=== PATIENT | female | born 1955 | race Caucasian/White ===

== ENCOUNTER 2017-04-24 11:48 | Day surgery (SDC) | payer OTHER ==
[~2017-04-24] VITALS: Ht 162.6 cm; Wt 71.8 kg
[~2017-04-24 11:48] MED LIST: ACET325 PO; AMLO5 PO; AMOX500 PO; ATOR40TA PO; Aspir 8181 MG PO; BLOOD PRESSURE MED; CLAR500 PO; COMBIVENT RESPIM4 GM INH; CYCL10 PO; DULO30 PO; Desyrel50 MG PO; ESTROGEN; FURO20 PO; HYDCHL25 PO; LISHYD1012 PO; LISI5 PO; LORA.5 PO; LOSA50 PO; METO50ER PO; METR250 PO; NAPR500 PO; OMEP20ER PO; ONDA8 PO; Omeprazole20 M1 PO; PARO10 PO; PARO20 PO; PARO30 PO; POTCHL10ER PO; POTCHL20ER PO; PRAV20 PO; PRED10 PO; Pravachol80 MG PO; SUCR1 PO; Senna Concentr8.6 MG PO; TETR250 PO
== END 2017-04-24 13:44 | disposition home or self-care (01) ==
LOC: ORSCSDS 11:48
PROVIDERS: Internal Medicine Gastroenterology
PROC: 0DBM8ZX Excision of Descending Colon, Via Natural or Artificial Opening Endoscopic, Diagnostic (ICD-10-PCS; principal; 2017-04-24 13:00)
PROC: 0DBK8ZX Excision of Ascending Colon, Via Natural or Artificial Opening Endoscopic, Diagnostic (ICD-10-PCS; principal; 2017-04-24 13:00)
PROC: 0DBP8ZX Excision of Rectum, Via Natural or Artificial Opening Endoscopic, Diagnostic (ICD-10-PCS; principal; 2017-04-24 13:00)
DX: Z86.010 Personal history of colon polyps (principal); K62.1 Rectal polyp; D12.4 Benign neoplasm of descending colon; D12.2 Benign neoplasm of ascending colon; I10 Essential (primary) hypertension; E78.5 Hyperlipidemia, unspecified; K21.9 Gastro-esophageal reflux disease without esophagitis; G47.33 Obstructive sleep apnea (adult) (pediatric); Z79.899 Other long term (current) drug therapy; Z79.82 Long term (current) use of aspirin; Z87.891 Personal history of nicotine dependence
CPT/HCPCS: 88305

== ENCOUNTER 2018-09-27 15:05 | Observation (INO) | payer OTHER ==
[~2018-09-27] VITALS: Ht 162.6 cm; Wt 68.5 kg
[~2018-09-27 15:05] MED LIST changes: -DULO30 PO; +DULO60 PO; -Desyrel50 MG PO; -Senna Concentr8.6 MG PO; +Senna Laxative8.6 MG PO; +TRAZ50 PO
[2018-09-27 18:15] LABS: Calcium, Ionized (POC) 1.13 mmol/L (1.10-1.46); Chloride (POC) 105 mmol/L (98-108); Creatinine (POC) 1.1 mg/dL (0.6-1.0); Glucose (ISTAT POC) 96 mg/dL (70-99); Hemoglobin (POC) 12.2 g/dL (12.0-16.0); Potassium (POC) 5.8 mmol/L (3.5-5.5); Sodium (POC) 138 mmol/L (135-148); Total CO2 (POC) 26 mmol/L (21-32)
[2018-09-28 03:24] LABS: Anion Gap 5 mmol/L (6-16); Blood Urea Nitrogen 18 mg/dL (8-24); Bun/Creatinine Ratio 18.2 (12.0-20.0); CO2, Blood 30 mmol/L (21-32); Calcium, Blood 9.1 mg/dL (8.5-10.1); Chloride, Blood 107 mmol/L (98-108); Creatinine, Blood 0.99 mg/dL (0.40-1.00); Glomerular Filtration Rate >60 (60-); Glucose, Blood 114 mg/dL (70-99); Potassium, Blood 3.4 mmol/L (3.5-5.5); Sodium, Blood 142 mmol/L (136-145)
--- NOTE | 2018-09-28 06:16 | NUR ---
SHIFT SUMMARY PT ARRIVED TO THE FLOOR WITHOUT INCIDENT. TELE PLACED, AND NO CALLS WERE RECIEVED BY THIS RN. VSS. NO COMPLAINTS OF CHEST PAIN/CHEST PRESSURE. PT SLEPT WITHOUT INCIDENT ALL NIGHT. WILL CONTINUE TO MONITOR.
[2018-09-28] MEDS ORDERED: ATOR40TA PO (10:06)
--- NOTE | 2018-09-28 10:22 | NUR ---
PT DCD HOME. ALL MEDS AND FOLLOW UP APPTS REVIEWED WITH PT WHO HAD NO QUESTIONS. PT OK TO DRIVE HERSELF HOME PER MD. ALL BELONGINGS SENT WITH PT AND PT STABLE UPON DC.
== END 2018-09-28 10:22 | disposition home or self-care (01) ==
LOC: ER 15:05 → MEDS 15:06 → ENPENDDIS 09-28 08:28 → MEDS 09-28 10:22
PROVIDERS: Physician Assistant; ADMIT Hospitalist
DX: I25.118 Atherosclerotic heart disease of native coronary artery with other forms of angina pectoris (principal); I10 Essential (primary) hypertension; E78.5 Hyperlipidemia, unspecified; E87.6 Hypokalemia; Z95.1 Presence of aortocoronary bypass graft; Z87.891 Personal history of nicotine dependence; Z88.1 Allergy status to other antibiotic agents; Z88.5 Allergy status to narcotic agent; Z79.899 Other long term (current) drug therapy
CPT/HCPCS: 36415; 71046; 71260; 80047; 80048; 80053; 83880; 84132; 84484; 85014; 85025; 93005; 93010; 96365-59; 96366-59; 99285-25; G0378; J3480; Q9967

== ENCOUNTER → 2018-12-29 | Outpatient (CLI) | payer OTHER ==
[2018-12-30 11:52] LABS: Calcium, Blood 8.9 mg/dL (8.5-10.1); Creatinine, Blood 1.08 mg/dL (0.40-1.00); Potassium, Blood 3.6 mmol/L (3.5-5.5)
== END ==
LOC: LAB SHORT 15:20 → LAB 15:20
PROVIDERS: Family Medicine
DX: E87.6 Hypokalemia (principal)
CPT/HCPCS: 80048

== ENCOUNTER → 2019-08-04 | Outpatient (CLI) | payer OTHER ==
[2019-08-04 13:47] LABS: BASOPHILS ABSOLUTE AUTO 0.06 K/mm3 (0.00-0.23); BASOPHILS PERCENT AUTO 1 % (0-2); EOSINOPHILS PERCENT AUTO 2 % (0-6); Hematocrit 41.7 % (33.0-51.0); Hemoglobin 12.9 g/dL (11.5-16.0); IMMATURE GRAN ABSOLUTE AUTO 0.02 K/mm3 (0.00-0.10); IMMATURE GRAN PERCENT AUTO 0 % (0-1); LYMPHOCYTES ABSOLUTE AUTO 2.62 K/mm3 (0.84-5.20); LYMPHOCYTES PERCENT AUTO 29 % (21-46); MONOCYTES ABSOLUTE AUTO 0.64 K/mm3 (0.16-1.47); MONOCYTES PERCENT AUTO 7 % (4-13); Mean Corpuscular HGB 30.3 pg (26.0-34.0); Mean Corpuscular HGB Conc 30.9 g/dL (31.5-36.5); Mean Corpuscular Volume 98 fL (80-100); Mean Platelet Volume 10.5 fL (9.1-12.4); NEUTROPHILS ABSOLUTE AUTO 5.51 K/mm3 (1.96-9.15); NEUTROPHILS PERCENT AUTO 61 % (41-73); Platelet Count 315 K/mm3 (150-400); RDW Coefficient Variation 12.7 % (11.7-14.2); RDW Standard Deviation 45.4 fL (35.1-46.3); Red Blood Cell Count 4.26 M/mm3 (3.80-5.20); White Blood Cell Count 9.05 K/mm3 (4.00-11.30)
[2019-08-04 14:18] LABS: Alanine Aminotransfer (ALT/SGP 34 U/L (12-78); Albumin, Blood 4.2 g/dL (3.4-5.0); Albumin/Globulin Ratio 1.2 (0.8-1.8); Alk Phos 45 U/L (50-136); Anion Gap 5 mmol/L (6-16); Aspartate Aminotrans (AST/SGOT 20 U/L (12-37); Bilirubin, Total 0.5 mg/dL (0.1-1.0); Blood Urea Nitrogen 16 mg/dL (8-24); CHOL/HDL RATIO 6.5; CO2, Blood 28 mmol/L (21-32); Calcium, Blood 9.2 mg/dL (8.5-10.1); Chloride, Blood 105 mmol/L (98-108); Cholesterol 297 mg/dL (50-200); Creatinine, Blood 0.94 mg/dL (0.40-1.00); Globulin, Blood 3.5 g/dL (2.2-4.0); Glomerular Filtration Rate >60 (60-); Glucose, Blood 109 mg/dL (70-99); HDL Cholesterol 46 mg/dL (>39); LDL/HDL RATIO 4.5; Low Density Lipoprotein Chol 207 mg/dL (0-110); Potassium, Blood 3.4 mmol/L (3.5-5.5); Sodium, Blood 138 mmol/L (136-145); Total Protein, Blood 7.7 g/dL (6.4-8.2); Triglycerides 218 mg/dL (30-160); Very Low Density Lipoprot Chol 43 mg/dL (6-32)
[2019-08-05 10:09] LABS: HBSAG SCREEN Negative (Negative); HEP A AB, IGM Negative (Negative); HEP B CORE AB, TOT Negative (Negative); HEP C VIRUS AB <0.1 (0.0-0.9)
== END ==
LOC: LAB SHORT 12:25 → LAB 12:25 → EDSTATUS 07-21 10:45 → LAB FUT 07-21 10:45
PROVIDERS: Family Medicine
DX: Z11.59 Encounter for screening for other viral diseases (principal); I10 Essential (primary) hypertension; R73.01 Impaired fasting glucose
CPT/HCPCS: 80053; 80061; 83036; 84443; 85025; 86704; 86708; 86803; 87340

== ENCOUNTER 2020-02-04 09:15 | Inpatient (IN) | payer MEDICARE, OTHER ==
[~2020-02-04] VITALS: Ht 162.6 cm; Wt 64.5 kg
[2020-02-04 10:11] LABS: BASOPHILS ABSOLUTE AUTO 0.08 K/mm3 (0.00-0.23); BASOPHILS PERCENT AUTO 1 % (0-2); EOSINOPHILS ABSOLUTE AUTO 0.27 K/mm3 (0.00-0.68); EOSINOPHILS PERCENT AUTO 3 % (0-6); Hematocrit 40.8 % (33.0-51.0); IMMATURE GRAN ABSOLUTE AUTO 0.02 K/mm3 (0.00-0.10); IMMATURE GRAN PERCENT AUTO 0 % (0-1); LYMPHOCYTES ABSOLUTE AUTO 3.09 K/mm3 (0.84-5.20); LYMPHOCYTES PERCENT AUTO 30 % (21-46); MONOCYTES ABSOLUTE AUTO 0.68 K/mm3 (0.16-1.47); MONOCYTES PERCENT AUTO 7 % (4-13); Mean Corpuscular HGB 31.4 pg (26.0-34.0); Mean Corpuscular HGB Conc 31.9 g/dL (31.5-36.5); Mean Corpuscular Volume 99 fL (80-100); Mean Platelet Volume 10.5 fL (9.1-12.4); NEUTROPHILS ABSOLUTE AUTO 6.15 K/mm3 (1.96-9.15); NEUTROPHILS PERCENT AUTO 60 % (41-73); Platelet Count 281 K/mm3 (150-400); RDW Coefficient Variation 12.1 % (11.7-14.2); RDW Standard Deviation 44.7 fL (35.1-46.3); Red Blood Cell Count 4.14 M/mm3 (3.80-5.20); White Blood Cell Count 10.29 K/mm3 (4.00-11.30)
[2020-02-04 10:28] LABS: Alanine Aminotransfer (ALT/SGP 23 U/L (12-78); Albumin, Blood 3.9 g/dL (3.4-5.0); Albumin/Globulin Ratio 1.1 (0.8-1.8); Alk Phos 59 U/L (50-136); Anion Gap 5 mmol/L (6-16); Aspartate Aminotrans (AST/SGOT 17 U/L (12-37); Bilirubin, Total 0.3 mg/dL (0.1-1.0); Blood Urea Nitrogen 17 mg/dL (8-24); Bun/Creatinine Ratio 19.7 (12.0-20.0); CO2, Blood 29 mmol/L (21-32); Calcium, Blood 9.1 mg/dL (8.5-10.1); Chloride, Blood 108 mmol/L (98-108); Creatinine, Blood 0.86 mg/dL (0.40-1.00); Globulin, Blood 3.5 g/dL (2.2-4.0); Glomerular Filtration Rate >60 (60-); Glucose, Blood 149 mg/dL (70-99); Potassium, Blood 3.5 mmol/L (3.5-5.5); Sodium, Blood 142 mmol/L (136-145); Total Protein, Blood 7.4 g/dL (6.4-8.2); Troponin I <0.015 ng/mL (0.000-0.040)
[2020-02-04] MEDS ORDERED: Bystolic2.5 MG PO (12:20)
[2020-02-04 14:48] LABS: International Normalized Ratio 0.91; Prothrombin Time Results 9.8 Sec (9.7-11.5)
--- NOTE | 2020-02-04 15:20 | NUR ---
Echocardiogram completed.
--- NOTE | 2020-02-04 16:48 | NUR ---
NEW ER ADMIT PT ARRIVE TO RM APPROX 1330. DX CHEST PAIN/PRESSURE, SOB. SHE STATE NO PAIN @ THIS TIME, NO SOB, NO N/T EXTREMITIES. STATE ER NITRO TX EFFECTIVE. STATE HX CABG 2014. CIVIL ENGINEERING SPECIALIST IN TO SEE PT, ORDER NPO AFTER MN FOR ANGIOGRAM IN AM. PLACE ORDERS FOR LOADING DOSE PLAVIX & HEP BOLUS THEN HEP GTT STARTED @ 17.7 ML/HR. ECHO COMPLETED. INITIAL CARDIAC LABS NEGATIVE. TELE MX REPORTS NSR 70'S-80'S. PT IS A/O X4, PLEASANT/COOPERATIVE, IND IN ROOM. VSS. ORIENTED TO & CALL SYSTEM.
--- NOTE | 2020-02-04 20:19 | NUR ---
ASSUMED CARE. RACIEL IS DOING BETTER. SHE HAS BEEN UP WALKING THE HALLS WITH THE IV POLE AND TOLERATING IT WELL. TELE REPORTS SINUS RUNNING IN THE 70'S. NO CHEST PAIN NOTED. SHE IS AWARE SHE WILL BE HAVING AN ANGIOGRAM IN THE MORNING. ENCOURAGE HER TO CALL IF SYMPTOMS START UP AGAIN. SHE SAID SHE WILL. DENIES ANY OTHER NEEDS AT THIS TIME. CALL LIGHT IS IN REACH.
--- NOTE | 2020-02-05 05:57 | NUR ---
SHIFT SUMMARY: AOX3, INDPENDENT. WALKED THE LOOP IN THE [place] SEVERAL TIMES LAST NIGHT. NO ANGINA PAIN OR OTHER FORMS OF CHEST PAIN OCCURRED. MILD TRACE EDEMA TO BLE. GOOD APPETITE. LUNGS CLEAR. NO CONGESTION NOTED. VS WNL, AFEBRILE. TELE REPORTS SINUS. NPO AFTER 4 AM FOR ANGIOGRAM. DID RECEIVE AM MEDICATION WITH SIP OF WATER ONLY. HEPARIN INFUSING PER ORDERS. NO OTHER CHANGES TO REPORT. CALL LIGHT IS IN REACH. PLAN: ANGIOGRAM THIS AM, FOLLOWUP WITH RESULTS. POSSIBLE DC HOME DEPENDING ON RESULTS.
[2020-02-05 10:04] LABS: SARS-Cov-2 (COVID-19) PCR, MMC Negative (NEGATIVE)
[2020-02-05 10:05] LABS: Influenza A, PCR Negative (NEGATIVE); Influenza B, PCR Negative (NEGATIVE); Resp Syncytial Virus, PCR Negative (NEGATIVE)
--- NOTE | 2020-02-05 10:55 | NUR ---
a+o, no s/sx of infection or infiltration, call light in reach, covid tested, taken by staff for procedure, will communicate with staff at post procedure destination when appropriate
--- NOTE | 2020-02-05 12:21 | NUR ---
icu called and said pt still having cp, gave report of her condition prior to general labor, nurse said she would get possessions from pcu 14
--- NOTE | 2020-02-05 13:17 | NUR ---
The pt arrived to ICU 1, c/o chest pain 6/10 described as pressure over her chest. Nitro gtt infusing at 10 mcg, 6cc/hour. Increased to 15 mcg and pt stated that her chest pressure improved to 4/10. Blood pressure remaining stable. Increased gtt to 20 mcg to resolve chest pressure. NO diaphoresis, no dyspnea. Right groin site sheath in place, distal pulses palpable, and toes are pink with brisk cap refill. Pt instructed to keep flat in bed. Given ice water to drink with bed in reverse trendelenbery position.
--- NOTE | 2020-02-05 15:36 | NUR ---
ntg gtt presently at 15 mcg/min, and pt states that her chest pressure has decreased to 1/10. Reports feeling hungry.
--- NOTE | 2020-02-05 17:52 | NUR ---
SHIFT SUMMARY PT ARRIVED TO ICU FROM [facility] THIS AFTERNOON, SHEATH IS IN PLACE, PT WAS COMPLAINING OF CHEST PAIN FOLLOWING RIGHT CORONARY STENT PLACEMENT VIA GROIN ACCESS. PT ARRIVED WITH A NITRO DRIP, BP STABLE, SINUS NICHOLAS RHYTHM SITTING IN 50s. CURRENTLY PT IS ON 20MCG/MIN OF NITRO AND HAS FLUCUATED THAT AMOUNT BETWEEN 15 AND 25MCG AT THE MOST. PT HAS ONE IV ON THE LEFT ARM WITH THE NITRO RUNNING AND HAD A POWERGLIDE PLACED TODAY FOR HER HEPARIN DRIP. THE POWERGLIDE WAS NO LONGER PATENT AND THE CATHETER WAS KINKED SO IT WAS REMOVED SEVERAL HOURS AFTER PLACEMENT. THE SHEATH GROIN SITE HAS HAD A SMALL AMOUNT OF SANGUIANOUS DRAINAGE, RN PEYTON HELD PRESSURE JUST ABOVE THE INSERTION SITE OVER THE FEMORAL ARTER FOR 10 MINUTES AROUND 1700; BLEEDING HAS SLOWED AT THIS TIME; WILL CONTINUE TO MONITOR. PT DENIES PAIN AROUND THE SITE AND DENIES ANY NUMBNESS IN THE LEG; PEDIS PULSE IS STRONG AND CAP REFILL IS LESS THAN 3 SECONDS. PT HAS BEEN ABLE TO LOG ROLL TO USE THE BED GUALLPA NEEDED AND REVERSE TRENDELEMBERG FOR EATING AND DRINKING. LUNG SOUNDS CLEAR; PT IS ON ROOM AIR. WILL CONTINUE TO TITRATE NITRO AND WORK ON GETTING A NEW SECOND LINE PLACED FOR THE HEPARIN DRIP.
--- NOTE | 2020-02-05 22:04 | NUR ---
CARE ASSUMED 1900 PT IN REVERSE [place] POSITION, LIFTING HER HEAD TO TALK TO FAMILY ON THE PHONE WHEN CARE ASSUMED. PT STATES CONSENT CP 2/10 THAT STARTED FEW MINUTES AGO, NOT RADIATING ANY WHERE. NITRO GTT INCREASED FROM 20 MCG/MIN TO 22 MCG/MIN WITH GOOD EFFECT. HEPARIN GTT 13 U/KG/HR, INFUSING IN RIGHT ARM IV. RIGHT FEMORAL GROIN SHEATH WITH TEGADERM DRESSING IN PLACE. SCANT AMOUNT OF BLOOD OOZING FROM UNDER THE DRESSING, STERILE GAUZE PLACED TO MEASURE AMOUNT OF BLOOD OOZING. PULSES STRONG IN RIGHT LOWER EXTREM, WARM TO TOUCH, AND PT DENIES NUMBNESS/TINGLING. DR. PHILLIPS CALLED TO UPDATE ON PT STATUS. ORDERS RECIVED TO CONTINUE NITRO AND HEPARIN GTT AND REMOVE SHEATH TOMORROW. PT CURRENTLY ON RA. VSS. WILL CONTINUE TO MONITOR.
--- NOTE | 2020-02-06 03:05 | NUR ---
UPDATE - SHEATH DRESSING CHANGED BRIGHT RED BLOOD CONTINUES TO OOZE FROM RIGHT FEMORAL GROIN SITE. STERILE GAUZE APPLIED TO RIGHT INGUINAL CANAL. GAUZE CHANGED EVERY HOUR SINCE SHIFT START WITH 50% SATURATION OF 4X4 STRILE GAUZE. CHG DRESSING CHANGED AND SINCE OOZING HAS DECREASED. VSS. PT DENIES CP. NITRO GTT DECREASED TO 16 MCG/MIN. LUNG SOUNDS CLEAR. PULSES STRONG AND PT DENIES NUMBNESS, DIZZINESS, N/V.
[2020-02-06 04:52] LABS: BASOPHILS ABSOLUTE AUTO 0.07 K/mm3 (0.00-0.23); BASOPHILS PERCENT AUTO 0 % (0-2); EOSINOPHILS PERCENT AUTO 1 % (0-6); Hematocrit 38.8 % (33.0-51.0); Hemoglobin 12.5 g/dL (11.5-16.0); IMMATURE GRAN ABSOLUTE AUTO 0.05 K/mm3 (0.00-0.10); IMMATURE GRAN PERCENT AUTO 0 % (0-1); LYMPHOCYTES ABSOLUTE AUTO 2.57 K/mm3 (0.84-5.20); LYMPHOCYTES PERCENT AUTO 16 % (21-46); MONOCYTES ABSOLUTE AUTO 0.91 K/mm3 (0.16-1.47); MONOCYTES PERCENT AUTO 6 % (4-13); Mean Corpuscular HGB 31.1 pg (26.0-34.0); Mean Corpuscular HGB Conc 32.2 g/dL (31.5-36.5); Mean Corpuscular Volume 97 fL (80-100); Mean Platelet Volume 10.1 fL (9.1-12.4); NEUTROPHILS ABSOLUTE AUTO 12.17 K/mm3 (1.96-9.15); NEUTROPHILS PERCENT AUTO 77 % (41-73); Platelet Count 264 K/mm3 (150-400); RDW Coefficient Variation 12.1 % (11.7-14.2); RDW Standard Deviation 43.5 fL (35.1-46.3); Red Blood Cell Count 4.02 M/mm3 (3.80-5.20); White Blood Cell Count 15.87 K/mm3 (4.00-11.30)
[2020-02-06 05:07] LABS: Anion Gap 4 mmol/L (6-16); Blood Urea Nitrogen 14 mg/dL (8-24); Bun/Creatinine Ratio 17.5 (12.0-20.0); CO2, Blood 28 mmol/L (21-32); Calcium, Blood 9.3 mg/dL (8.5-10.1); Chloride, Blood 108 mmol/L (98-108); Glomerular Filtration Rate >60 (60-); Glucose, Blood 123 mg/dL (70-99); Potassium, Blood 3.6 mmol/L (3.5-5.5); Sodium, Blood 140 mmol/L (136-145)
--- NOTE | 2020-02-06 07:23 | NUR ---
SHIFT SUMMARY PT A/O X 4. PT DENIES CP. NITRO GTT 5 MCG/MIN. HEPARIN GTT 13 U/KG/HR. RIGHT FEMORAL GROIN WITH SHEATH IN PLACE. SHEATH CONTINUES TO BE OOZING SCANT AMOUNT OF BLOOD, 4x4 GAUZE CONTINUE TO BE SATURATED 50% DURING EVERY 1 HOUR ASSESSMENT. WILL REPORT TO ONCOMING SHIFT. RIGHT FEMORAL PULSE STRONG, WARM, WITH < 3 SEC CAP REFILL. PT DENIES NUMBNESS. PT REMAINS IN NSR, VSS. WILL REPORT TO ONCOMING SHIFT.
--- NOTE | 2020-02-06 10:34 | NUR ---
CARE ASSUMED REPORT RECEIVED, CARE ASSUMED AT 0700 FROM SHAWN VALDEZ AT 0700. UPON ASSUMING CARE, PT AWAKE IN BED, TALKING WITH STAFF. VISUALIZED SHEATH DRESSING WITH SHAWN VALDEZ AND DRESSING SITE UNCHANGED SINCE ASSUMING CARE. NO FUTHER OOZING NOTED. HEPARIN STOPPED AT 0850 PER WATER TANKER DRIVER ORDERS. NITRO GTT CONTINUES TO INFUSE AT LOW DOSE PT HYPERTENSIVE. AM BP MEDS GIVEN, WILL CONTINUE TO CLOSELY MONITOR. PT DENIES CHEST PAIN, PRESSURE, SOB OR DIZZINESS CONSISTENTLY. AWARE AND COMPLIANT WITH LIMITATIONS ASSOCIATED WITH SHEATH. PT ABLE TO USE BEDPAN AND TURN SELF USING LEFT LEG ONLY AND KEEPING RIGHT LEG COMPLETELY STRAIGHT. CALLING APPROPRIATELY FOR NEEDS. PT'S BREAKFAST TRAY HELD THIS MORNING UNTIL CONFIRMATION OF NO REPEAT DIRECTOR OF RECREATION THERAPY PROCEDURE TODAY. WAITING FOR CARDIOLOGY REEVALUATION THIS MORNING.
--- NOTE | 2020-02-06 11:31 | NUR ---
PROVIDER COMMUNICATION SPOKE WITH DR. PHILLIPS FOR UPDATE ON PATIENT. NEW ORDER FOR REPEAT PTT Q2H UNTIL PTT IS LESS THAN 40. TURN OF NITRO. IF PTT LESS THAN 40 AND PT WITHOUT CHEST PAIN OFF OF NITRO, REMOVE SHEATH. OK TO FEED PATIENT. PT ALSO EXPRESSING CONCERN ABOUT FEELING ANXIOUS/RESTLESS. NEW ORDER FOR XANAX FROM DR. PHILLIPS. PER DR. PHILLIPS, SHE WILL SEE PATIENT THIS AFTERNOON.
--- NOTE | 2020-02-06 12:33 | NUR ---
PROVIDER COMMUNICATION CALL PLACED TO DR. PHILLIPS TO UPDATE ON PTT RESULTS. PT HAS ALSO HAD NO CHEST PAIN SINCE TURNING NITRO OFF 1 HOUR AGO. WILL WAIT FOR TAILINGS DAM LABORER CONFIRMATION PRIOR TO REMOVAL OF SHEATH.
--- NOTE | 2020-02-06 17:26 | NUR ---
SUMMARY SINCE PREVIOUS NOTES, PT'S SHEATH REMOVED WITHOUT COMPLICATIONS. AT THIS TIME PT SITTING UP IN BED EATING BREAKFAST. NO SIGN OF BLEEDING NOTED. NO HEMATOMAS, SWELLING OR FIRMNESS. VITALS STABLE. DISTAL TOES CONTINUE TO BE PINK, PULSES STRONG. DR. PHILLIPS TO BEDSIDE FOR ASSESSMENT THIS EVENING AND PT CHANGED TO PCU STATUS. PT HAS NOT HAD CHEST PAIN FOR DURATION OF DAY. HEPARIN AND NITRO DRIPS TURNED OFF INDICATED IN PREVIOUS CHARTING. PT CALLING APPROPRIATELY FOR NEEDS THROUGHOUT DAY. AT BEDSIDE THIS AFTERNOON.
--- NOTE | 2020-02-06 19:04 | NUR ---
REPORT GIVEN TO SHAWN NORTH TO ASSUME CARE AT THIS TIME. SINCE PREVIOUS NOTE, PT AMBULATED IN ROOM AND UP TO CHAIR AND HAS HAD NO COMPLICATIONS. VITALS CONTINUE TO BE STABLE. SITE ASSESSMENT UNCHANGED. SITE VISUALIZED AND PALPATED WITH ONCOMING NURSE.
[2020-02-07 04:02] LABS: BASOPHILS ABSOLUTE AUTO 0.08 K/mm3 (0.00-0.23); BASOPHILS PERCENT AUTO 1 % (0-2); EOSINOPHILS ABSOLUTE AUTO 0.23 K/mm3 (0.00-0.68); EOSINOPHILS PERCENT AUTO 2 % (0-6); Hematocrit 41.6 % (33.0-51.0); Hemoglobin 13.5 g/dL (11.5-16.0); IMMATURE GRAN ABSOLUTE AUTO 0.02 K/mm3 (0.00-0.10); IMMATURE GRAN PERCENT AUTO 0 % (0-1); LYMPHOCYTES ABSOLUTE AUTO 2.67 K/mm3 (0.84-5.20); LYMPHOCYTES PERCENT AUTO 23 % (21-46); MONOCYTES ABSOLUTE AUTO 1.08 K/mm3 (0.16-1.47); MONOCYTES PERCENT AUTO 9 % (4-13); Mean Corpuscular HGB 31.5 pg (26.0-34.0); Mean Corpuscular HGB Conc 32.5 g/dL (31.5-36.5); Mean Corpuscular Volume 97 fL (80-100); Mean Platelet Volume 10.6 fL (9.1-12.4); NEUTROPHILS ABSOLUTE AUTO 7.39 K/mm3 (1.96-9.15); NEUTROPHILS PERCENT AUTO 64 % (41-73); Platelet Count 279 K/mm3 (150-400); RDW Standard Deviation 43.5 fL (35.1-46.3); Red Blood Cell Count 4.28 M/mm3 (3.80-5.20); White Blood Cell Count 11.47 K/mm3 (4.00-11.30)
--- NOTE | 2020-02-07 05:26 | NUR ---
Shift Summary Hannah is A&O x4. No acute changes this shift. Vital signs continue to be stable with HR in the 70's-80's and sinus rhythm. No chest pain, and reports to be "feeling good". R groin site dressing remained c/d/i with no drainage, bruising, swelling or firmness at site. Distal extremity warm pink and pulses remain strong, will continue to monitor. R forearm and L ac IV's are flushing well and saline locked. Pt slept most of the shift, and pleasent when waking for cares.
--- NOTE | 2020-02-07 09:40 | NUR ---
AN ASSESSMENT X2 REVEALS STABLE R GROIN SITE, GOOD DISTAL PULSES, NO PAIN OR BRUSING AT SITE. PT DENIES SOB OR CHEST PAIN OVER NIGHT. PT IS A/O AND COOP WITH CARE. MEDICATION EDUCATION WELL SITE CARE INSTRUCTIONS GIVEN RE EXERCISE, LIFTING, COUGHING, AND SHOWERING WHEN GOING HOME.
--- NOTE | 2020-02-07 09:56 | NUR ---
PT JUST WALKED W/O CHEST PAIN, SOB, OR ANY OTHER DISTRESS. SITE IS STABLE AFTER WALK.
[2020-02-07] MEDS ORDERED: CLOP75 PO (11:16)
[2020-02-07] MEDS ORDERED: CARV3.125 (11:16)
[2020-02-07] MEDS ORDERED: EZET10 PO (11:17)
[2020-02-07] MEDS ORDERED: Isosorbide Mono30 MG PO (11:17)
--- NOTE | 2020-02-07 13:48 | NUR ---
DISCHARGE INSTRUCTIONS GIVEN PER SALMA ESCOBAR. IV'S X2 REMOVED INTACT. PT PAPERWORK SENT HOME AND PT TO [facility] PER W/C TO [facility] FOR . PT HAS CONT UP IN ROOM AND MOVING ABOUT W/O DISTRESS, C.P., SOB.
== END 2020-02-07 12:05 | disposition home or self-care (01) | DRG 247 ==
LOC: ER 09:15 → MEDS 09:16 → PCU 02-05 10:45 → MEDS 02-05 12:17 → ICUE 02-05 12:30
PROVIDERS: Emergency Medicine; Family Medicine; Internal Medicine Interventional Cardiology; Nurse Practitioner Acute Care; ADMIT Family Medicine
PROC: 027034Z Dilation of Coronary Artery, One Artery with Drug-eluting Intraluminal Device, Percutaneous Approach (ICD-10-PCS; principal; 2020-02-05)
PROC: B2111ZZ Fluoroscopy of Multiple Coronary Arteries using Low Osmolar Contrast (ICD-10-PCS; 2020-02-05)
PROC: B41J1ZZ Fluoroscopy of Other Lower Arteries using Low Osmolar Contrast (ICD-10-PCS; 2020-02-05)
DX: I25.110 Atherosclerotic heart disease of native coronary artery with unstable angina pectoris (principal); F33.9 Major depressive disorder, recurrent, unspecified; I97.88 Other intraoperative complications of the circulatory system, not elsewhere classified; I24.0 Acute coronary thrombosis not resulting in myocardial infarction; Z79.82 Long term (current) use of aspirin; I10 Essential (primary) hypertension; E78.5 Hyperlipidemia, unspecified; Z95.1 Presence of aortocoronary bypass graft; Z87.891 Personal history of nicotine dependence; E87.6 Hypokalemia; K21.9 Gastro-esophageal reflux disease without esophagitis; Z20.828 Contact with and (suspected) exposure to other viral communicable diseases; Y83.8 Other surgical procedures as the cause of abnormal reaction of the patient, or of later complication, without mention of misadventure at the time of the procedure; Y92.234 Operating room of hospital as the place of occurrence of the external cause
CPT/HCPCS: 0241U; 36415; 71045; 76937; 80048; 80053; 83880; 84484; 85025; 85347; 85610; 85730; 93005; 93010; 93306; 93455; 99152; 99153; 99285-25; A9270; A9270-GY; C1725; C1751; C1760; C1769; C1874; C1887; C1894; C9604; J0461; J1644; J2250; J2270; J2405; J3010; J7030; J7040; Q9967

== ENCOUNTER → 2023-08-08 | Outpatient (CLI) | payer OTHER ==
[~2023-08-08] MED LIST changes: +Bystolic2.5 MG PO; +CARV3.125; +CLOP75 PO; +EZET10 PO; +Isosorbide Mono30 MG PO
[2023-08-08 10:11] LABS: BASOPHILS ABSOLUTE AUTO 0.08 K/mm3 (0.00-0.23); BASOPHILS PERCENT AUTO 1 % (0-2); EOSINOPHILS ABSOLUTE AUTO 0.15 K/mm3 (0.00-0.68); EOSINOPHILS PERCENT AUTO 2 % (0-6); Hematocrit 41.1 % (33.0-51.0); Hemoglobin 13.1 g/dL (11.5-16.0); IMMATURE GRAN ABSOLUTE AUTO 0.01 K/mm3 (0.00-0.10); IMMATURE GRAN PERCENT AUTO 0 % (0-1); LYMPHOCYTES ABSOLUTE AUTO 2.28 K/mm3 (0.84-5.20); LYMPHOCYTES PERCENT AUTO 28 % (21-46); MONOCYTES ABSOLUTE AUTO 0.59 K/mm3 (0.16-1.47); MONOCYTES PERCENT AUTO 7 % (4-13); Mean Corpuscular HGB Conc 31.9 g/dL (31.5-36.5); Mean Corpuscular Volume 101 fL (80-100); NEUTROPHILS ABSOLUTE AUTO 5.03 K/mm3 (1.96-9.15); NEUTROPHILS PERCENT AUTO 62 % (41-73); Platelet Count 279 K/mm3 (150-400); RDW Coefficient Variation 12.2 % (11.7-14.2); RDW Standard Deviation 45.3 fL (35.1-46.3); Red Blood Cell Count 4.09 M/mm3 (3.80-5.20); White Blood Cell Count 8.14 K/mm3 (4.00-11.30)
[2023-08-08 10:20] LABS: Alanine Aminotransfer (ALT/SGP 63 U/L (12-78); Albumin, Blood 4.2 g/dL (3.4-5.0); Albumin/Globulin Ratio 1.3 (0.8-1.8); Alk Phos 40 U/L (50-136); Anion Gap 7 mmol/L (3-11); Aspartate Aminotrans (AST/SGOT 16 U/L (12-37); Bilirubin, Total 0.6 mg/dL (0.1-1.0); Blood Urea Nitrogen 17 mg/dL (8-24); CHOL/HDL RATIO 4.3; CO2, Blood 26 mmol/L (21-32); Calcium, Blood 9.1 mg/dL (8.5-10.1); Chloride, Blood 112 mmol/L (98-108); Cholesterol 259 mg/dL (50-200); Globulin, Blood 3.3 g/dL (2.2-4.0); Glomerular Filtration Rate 70 (60-); Glucose, Blood 112 mg/dL (70-99); HDL Cholesterol 60 mg/dL (>39); LDL/HDL RATIO 2.8; Low Density Lipoprotein Chol 169 mg/dL (0-110); Potassium, Blood 3.7 mmol/L (3.5-5.5); Sodium, Blood 141 mmol/L (136-145); Total Protein, Blood 7.5 g/dL (6.4-8.2); Triglycerides 149 mg/dL (30-160); Very Low Density Lipoprot Chol 29 mg/dL (6-32)
[2023-08-09 16:32] LABS: HEPATITIS C AB CIA INTERP Negative (Negative); HEPATITIS C ANTIBODY CIA INDEX <0.02 IV
== END | disposition home or self-care (01) ==
LOC: LAB SHORT 09:02 → LAB 09:02
PROVIDERS: Family Medicine
DX: Z11.59 Encounter for screening for other viral diseases (principal); E55.9 Vitamin D deficiency, unspecified; E78.5 Hyperlipidemia, unspecified; I10 Essential (primary) hypertension; R73.01 Impaired fasting glucose
CPT/HCPCS: 36415; 80053; 80061; 82306; 83036; 85025; 86803

== ENCOUNTER 2023-09-27 07:57 | Day surgery (SDC) | payer OTHER ==
[~2023-09-27] VITALS: Ht 162.6 cm; Wt 65.8 kg
[2023-09-27] VITALS (16 sets, daily range): BP systolic 122–177; BP diastolic 69–95
[~2023-09-27 07:57] MED LIST changes: +CATAPRES0.2 M1 PO; +LEVOCETIRIZINE D5 MG PO; +NITR.4SL SL; -Omeprazole20 M1 PO; +REPATHA SU140 MG/1 M SQ
[2023-09-27] MEDS ORDERED: Verapamil HCL 2.5 MG/ML 2ML Injection ONE (08:20)
[2023-09-27] MEDS ORDERED: Heparin Sodium 1000 Units/ML 10ML MDV ONE (08:21)
[2023-09-27] MEDS ORDERED: NS 1,000 ML IV ONE ×2 (08:21→08:52)
[2023-09-27] MEDS ORDERED: NS 250 ML IV ONE (08:21)
[2023-09-27] MEDS ORDERED: ASPI81CH PO (08:32)
[2023-09-27] MEDS ORDERED: FentaNYL Citrate 50 MCG/ML 2 ML Injection ONE (08:52)
[2023-09-27] MEDS ORDERED: Midazolam HCl 1MG / ML 2ML Vial ONE (08:52)
[2023-09-27] MEDS ORDERED: Tirofiban HCL Monohydrate 3.75 MG/15 ML Vial ONE (09:46)
[2023-09-27] MEDS ORDERED: Clopidogrel Bisulfate 300 MG Cap ONE (09:57)
--- NOTE | 2023-09-27 10:30 | NUR ---
PT TO RECOVERY ROOM S/P PCI WITH STENT PLACEMENT AT 1012. PT AWAKE AND ALERT, DENIES COMPLAINTS. TR BAND TO LEFT RADIAL ARTERY W 11CC AIR TO BALLOON. PT DENIES NUMBNESS/PAIN TO AREA. CIRC CHECK WNL. FAMILY BROUGHT BACK. PT UPDATED BY DR CORREA. PT SITTING UP IN CHAIR DRINKING COFFEE W/O COMPLAINTS. FOOD OFFERED, DECLINED FOR NOW.
--- NOTE | 2023-09-27 12:09 | NUR ---
BP 171/81, DR CORREA NOTIFIED. PT'S HOME DOSE OF CLONIDINE ORDERED.
[2023-09-27] MEDS ORDERED: CloNIDine 0.1 MG Tab PO ONE (12:10)
--- NOTE | 2023-09-27 12:32 | NUR ---
CLONIDINE 0.2MG GIVEN TO PATIENT. VERBAL AND WRITTEN DISCHARGE INSTRUCTIONS GIVEN TO PATIENT WITH CLEAR UNDERSTANDING. TR BAND SITE STABLE/WNL. BP 163/84
--- NOTE | 2023-09-27 14:27 | NUR ---
TR BAND FULLY DEFLATED AT 1400. AREA SOFT WITHOUT BLEEDING OR HEMATOMA.
--- NOTE | 2023-09-27 15:22 | NUR ---
PT DC'D HOME IN STABLE CONDITION AT 1510 IN CARE OF PT'S . PT ESCORTED OUT VIA WHEELCHAIR. VSS. TR BAND REMOVED AT 1500, DRSG PLACED, WRIST IMMOBILIZER IN PLACE. AREA SOFT WITHOUT HEMATOMA, SWELLING, OR BLEEDING. IV DC'D INTACT. CIRC CHECK WNL.
== END 2023-09-27 16:01 | disposition home or self-care (01) ==
LOC: MHTC 07:57
DX: I25.119 Atherosclerotic heart disease of native coronary artery with unspecified angina pectoris (principal); E78.5 Hyperlipidemia, unspecified; I10 Essential (primary) hypertension; Z95.1 Presence of aortocoronary bypass graft; Z88.0 Allergy status to penicillin; Z88.1 Allergy status to other antibiotic agents; Z88.5 Allergy status to narcotic agent; Z88.8 Allergy status to other drugs, medicaments and biological substances; Z87.891 Personal history of nicotine dependence
CPT/HCPCS: 85347; 93459; 99152; 99153; A9270; C1725; C1769; C1874; C1887; C1894; C9600; J1644; J2250; J3010; J3246; J7030; J7050; Q9967